=== PATIENT | female | born 1955 | race Caucasian/White ===

== ENCOUNTER 2019-05-03 12:57 | Emergency (ER) | payer BC ==
[2019-05-03] MEDS ORDERED: ADENOSINE INJ/PF 6 MG/2 ML SDV IV ONE (13:19)
[2019-05-03] MEDS ORDERED: DIAZEPAM INJ 10 MG/2 ML DISP.SYRIN IV ONE (13:19)
[2019-05-03] MEDS ORDERED: ENOXAPARIN SODIUM INJ 40 MG/0.4 ML DISP.SYRIN SUBCUT ONE (13:30)
[2019-05-03] MEDS ORDERED: PROPOFOL INJ 200 MG/20 ML VIAL IV ONE (13:31)
--- NOTE | 2019-05-03 13:31 | ER Document Report ---
ED General - General Chief Complaint: Chest Pain Stated Complaint: CHEST PAIN Primary Care Provider: TIGIST LAI NP [Primary Care Provider] - Follow up as needed KO CULVER MD [EMERITUS] - Follow up in 1 week Notes: 63-year-old female with a remote history of rheumatic fever as a child presents with chest neck and tongue pressure onset this morning when she woke up 100% sure about time of onset, went to bed last night feeling fine. Noted to be tachycardic at primary care. Recent battery of tests negative. No cardiac issues other than rheumatic fever, no history of shortness of breath exertional chest pain or angina. No leg swelling or PE risk factors. Does not smoke. Last p.o. last night. - Related Data Allergies/Adverse Reactions: No Known Allergies Allergy (Unverified 05/03/19 13:30) Past Medical History - General Information source: Patient - Social History Smoking Status: Never Smoker Family History: None Review of Systems - Review of Systems Notes: REVIEW OF SYSTEMS GEN: Denies fever, chills, weight loss ENT: Tongue pain neck discomfort n EYES: Denies blurry vision, eye pain, discharge CV: Denies chest pain, palpitations, edema RESP: Denies cough, shortness of breath, wheezing GI: Denies abdominal pain, nausea, vomiting, diarrhea MSK: Denies joint pain/swelling, edema, SKIN: Denies rash, skin lesions LYMPH: Denies swollen glands/lymph nodes NEURO: Denies headache, focal weakness or numbness, dizziness PSYCH: Denies depression, suicidal or homicidal ideation PHYSICAL EXAMINATION General: No acute distress, well-nourished Head: Atraumatic, normocephalic ENT: Mouth normal, oropharynx moist, no exudates or tonsillar enlargement Eyes: Conjunctiva normal, pupils equal, lids normal Neck: No JVD, supple, no guarding CVS: Regular tachycardia Resp: No resp distress, equal and normal breath sounds bilaterally GI: Nondistended, soft, no tenderness to palpation, no rebound or guarding Ext: No deformities, no edema, normal range of motion in upper and lower ext Back: No CVA or midline TTP Skin: No rash, warm Lymphatic: No lymphadeopathy noted Neuro: Awake, alert. Face symmetric. GCS 15. Physical Exam - Vital signs Vitals: Pulse Ox 100 05/03/19 12:57 Course - Re-evaluation Re-evalutation: 05/03/19 13:39 Healthy female presents with what sounds like recent onset atrial fib/flutter risk factor being rheumatic heart disease, n.p.o. with no signs of heart failure or acute coronary syndrome. No known history of CAD despite reported history in the office of ST depression which is more likely repolarization related. Discussed options and she elected for electrical cardioversion which I offered. 05/03/19 14:13 Converted on her own. Labs normal. Aspirin, follow-up with cardiology avoid Vyvanse I have discussed with the patient there likely diagnosis, aftercare plan, follow-up plans and my usual and customary return precautions. They verbalized understanding of this. 05/03/19 14:14 - Vital Signs Vital signs: Temp Pulse Resp BP Pulse Ox 17 107/51 L 100 05/03/19 14:01 05/03/19 14:00 05/03/19 12:57 - Laboratory Result Diagrams: 05/03/19 13:23 05/03/19 13:23 Laboratory results interpreted by me: 05/03/19 13:23 BUN 24 H - Diagnostic Test Radiology reviewed: Image reviewed, Reports reviewed - EKG Interpretation by Me Rate: Tachycardia Rhythm: Arrthymia, A.Fib, A.Flutter - A. fib on EKG versus a flutter When compared to previous EKG there are: Previous EKG unavailable - Transfer of Care Notes: 05/03/19 14:53 Seconds EKG: Sinus rhythm rate [address] change Critical Care Note - Critical Care Note Total time excluding time spent on procedures (mins): 31 Comments: The above patient is critically ill. Not including procedures, but including direct re-evaluations, speaking with patient and/or consultants, interpreting results, and documenting, I spent the total amount of minute listed listed above on critical care time Discharge - Discharge Clinical Impression: Atrial flutter Qualifiers: Atrial flutter type: typical Qualified Code(s): I48.3 - Typical atrial flutter Condition: Good Disposition: HOME, SELF-CARE Instructions: Paroxysmal Supraventricular Tachycardia ([facility]) Additional Instructions: Please begin taking an adult sized aspirin 325 mg orally each day. Please stop taking Vyvanse as it may be making her symptoms worse. Referrals: TIGIST LAI NP [Primary Care Provider] - Follow up as needed KO CULVER MD [EMERITUS] - Follow up in 1 week
[2019-05-03 13:41] LABS: ABSOLUTE EOSINOPHILS # (AUTO) 0.1 10^3/uL (0.0-0.6); ABSOLUTE LYMPHOCYTES (AUTO) 1.5 10^3/uL (0.5-4.7); ABSOLUTE MONOCYTES (AUTO) 0.7 10^3/uL (0.1-1.4); ABSOLUTE NEUT (AUTO) 4.5 10^3/uL (1.7-8.2); BASOPHILS % (AUTO) 0.4 % (0-2); EOSINOPHILS % (AUTO) 1.3 % (0-6); HEMATOCRIT 42.5 % (36.0-47.0); HEMOGLOBIN 14.2 g/dL (12.0-15.5); LYMPHOCYTES % (AUTO) 22.4 % (13-45); MEAN CORPUSCULAR HEMOGLOBIN 28.1 pg (27.0-33.4); MEAN CORPUSCULAR HGB CONC 33.4 g/dL (32.0-36.0); MEAN CORPUSCULAR VOLUME 84 fl (80-97); MONOCYTES % (AUTO) 9.6 % (3-13); PLATELET COUNT 330 10^3/uL (150-450); RED BLOOD COUNT 5.05 10^6/uL (3.72-5.28); RED CELL DISTRIBUTION WIDTH 13.6 % (11.5-14.0); SEGMENTED NEUTROPHILS % (AUTO) 66.3 % (42-78); TOTAL CELLS COUNTED % (AUTO) 100 %; WHITE BLOOD COUNT 6.8 10^3/uL (4.0-10.5)
[2019-05-03 14:00] LABS: ALBUMIN 4.6 g/dL (3.5-5.0); ALKALINE PHOSPHATASE 61 U/L (38-126); ANION GAP 11 (5-19); ASPARTATE AMINO TRANSFERASE 19 U/L (14-36); BILIRUBIN,DIRECT 0.2 mg/dL (0.0-0.4); BILIRUBIN,TOTAL 0.5 mg/dL (0.2-1.3); BLOOD UREA NITROGEN 24 mg/dL (7-20); CALCIUM 9.8 mg/dL (8.4-10.2); CARBON DIOXIDE 24 mmol/L (22-30); CHLORIDE 106 mmol/L (98-107); CREATINE KINASE 46 U/L (30-135); GLUCOSE 108 mg/dL (75-110); POTASSIUM 4.4 mmol/L (3.6-5.0); TOTAL PROTEIN 7.8 g/dL (6.3-8.2)
[2019-05-03 14:12] LABS: CREATINE KINASE MB 1.66 ng/mL (<4.55)
[2019-05-03 14:19] LABS: TROPONIN I 0.098 ng/mL
[2019-05-03 14:26] VITALS: BP 107/51
--- NOTE | 2019-05-03 21:21 | EKG REPORT ---
SEVERITY:- NORMAL ECG - SINUS RHYTHM : Confirmed by: Jon Bradley 03-May-2019 21:20:34
--- NOTE | 2019-05-03 21:21 | EKG REPORT ---
SEVERITY:- ABNORMAL ECG - ATRIAL FIBRILLATION WITH RAPID V-RATE REPOLARIZATION ABNORMALITY, PROB RATE RELATED : Confirmed by: Jon Bradley 03-May-2019 21:20:44
== END 2019-05-03 14:56 | disposition home or self-care (01) ==
LOC: ER 12:57
DX: I48.3 Typical atrial flutter (principal); R07.9 Chest pain, unspecified; M54.2 Cervicalgia; R00.0 Tachycardia, unspecified
CPT/HCPCS: 36415; 80053; 82550; 82553; 84443; 84484; 85025; 93005; 93010; 99291